=== PATIENT | male | born 1955 | race Caucasian/White ===

== ENCOUNTER → 2024-11-14 | Outpatient (CLI) | payer MEDICARE ==
--- NOTE | 2024-11-14 13:18 | CA ---
Transthoracic Echo Report Name: Go Mccall Age: 69 Gender: M : 1955 Exam Date: 11/14/2024 11:28 Exam Location: [facility] Ht (in): 69 Wt (lb): 195 Ordering Physician: Clement Sherwood MD Attending/Referring Phys: Presley RICHARDSON [employer] Ariadna Gallego RDCS Procedure CPT: Indications: a fib Cardiac Hx: Technical Quality: Good Contrast 1: Total Dose (mL): Contrast 2: Total Dose (mL): MEASUREMENTS (Male / Female) Normal Values 2D ECHO LV Diastolic Diameter PLAX 5.8 cm 4.2 - 5.9 / 3.9 - 5.3 cm LV Systolic Diameter PLAX 4.5 cm IVS Diastolic Thickness 1.2 cm 0.6 - 1.0 / 0.6 - 0.9 cm LVPW Diastolic Thickness 1.3 cm 0.6 - 1.0 / 0.6 - 0.9 cm LV Relative Wall Thickness 0.4 RV Internal Dim ED PLAX 3.6 cm LA Systolic Diameter LX 4.5 cm 3.0 - 4.0 / 2.7 - 3.8 cm LV Diastolic Volume MOD 4C 81.3 cm??? LV Systolic Volume MOD 4C 46.6 cm??? LV Ejection Fraction MOD 4C 42.7 % LV Cardiac Index MOD 4C 1242.0 cm???/min???m??? LV Diastolic Length 4C 8.1 cm LV Systolic Length 4C 6.4 cm LV Diastolic Volume MOD 2C 106.0 cm??? LV Systolic Volume MOD 2C 53.4 cm??? LV Ejection Fraction MOD 2C 49.6 % LV Cardiac Index MOD 2C 1881.9 cm???/min???m??? LV Diastolic Length 2C 8.6 cm LV Systolic Length 2C 7.2 cm LA Volume 100.3 cm??? 18 - 58 / 22 - 52 cm??? LA Volume Index 47.9 cm???/m??? 16 - 28 cm???/m??? M-MODE Aortic Root Diameter MM 3.8 cm AV Cusp Separation MM 2.2 cm DOPPLER AV Peak Velocity 192.2 cm/s AV Peak Gradient 14.8 mmHg AV Mean Velocity 113.0 cm/s AV Mean Gradient 6.1 mmHg AV Velocity Time Integral 35.5 cm AI Peak Velocity 481.9 cm/s AI Peak Gradient 92.9 mmHg AI Pressure Half Time 921.6 ms MV Area PHT 3.4 cm??? MV Deceleration Time 176.3 ms TR Peak Velocity 277.8 cm/s TR Peak Gradient 30.9 mmHg Right Ventricular Systolic Press 35.9 mmHg FINDINGS Left Ventricle Left ventricular ejection fraction is estimated at 40-45 %. Mildly increased septal wall thickness. No obvious regional wall motion abnormalities. Right Ventricle Mild right ventricular dilatation. Mild pulmonary hypertension. Right Atrium Normal right atrial size. No right atrial thrombus or mass seen. Left Atrium Mildly increased left atrial diameter. Severely increased left atrial volume. Mildly increased left atrial area. Mitral Valve Structurally normal mitral valve. Mild mitral regurgitation. Aortic Valve Trileaflet aortic valve. Thickened aortic valve without stenosis. Mild-to- moderate aortic regurgitation. Tricuspid Valve Structurally normal tricuspid valve. Mild tricuspid regurgitation. Pulmonic Valve Structurally normal pulmonic valve. Mild pulmonic regurgitation. Pericardium No pericardial effusion. Aorta Mild aortic dilatation at the level of the sinuses of valsalva 38 mm CONCLUSIONS Mildly impaired LV function with EF between 40 to 45%. LVH noted Aortic sclerosis with mild to moderate aortic regurgitation. Cannot rule out bicuspid aortic valve Mildly dilated aorta at the level of sinus of Valsalva Mild mitral regurgitation Mild pulmonary hypertension Previewed by: Dr. Romeo Watson MD (Electronically Signed) Final Date: 14 November 2024 13:18
== END | disposition home or self-care (01) ==
LOC: RADNMMAIN 10:38
PROVIDERS: ATTEND Family Medicine
DX: I48.91 Unspecified atrial fibrillation (principal); I70.0 Atherosclerosis of aorta; I27.20 Pulmonary hypertension, unspecified; I34.0 Nonrheumatic mitral (valve) insufficiency
CPT/HCPCS: 93306

== ENCOUNTER 2025-03-31 10:49 | Day surgery (SDC) | payer MEDICARE ==
[2025-03-28 09:52] VITALS: BMI 28.8
[~2025-03-31 10:49] MED LIST: LIDOCAINE 1% (10MG/ML) FOR IV START INTRADERMA PRN
[2025-03-31 11:41] VITALS: TEMP 97.7
[2025-03-31] MEDS: LACTATED RINGERS 1,000 ML IV ONE (11:56)
[2025-03-31] MEDS: LACTATED RINGERS 1,000 ML IV SCH (11:56)
[2025-03-31 11:59] LABS: Glucose,Whole Blood 110 mg/dL (70-110)
[2025-03-31] MEDS ORDERED: PROPOFOL 10 MG/ML 20 ML VIAL IV ONE (12:36)
[2025-03-31] MEDS ORDERED: LIDOCAINE 1% INJ 10MG/ML (20 ML MDV) ONE (12:36)
--- NOTE | 2025-03-31 13:08 | P.PCN ---
Date of Procedure: 03/31/25 Preoperative Diagnosis: Positive Cologuard Postoperative Diagnosis: Ascending colon polyp Diverticulosis Procedure(s) Performed: Colonoscopy with hot snare polypectomy Anesthesia: MAC Surgeon: Xavier Venegas Pathology: other (Ascending colon polyp) Condition: stable Disposition: same day Indications for Procedure: 69-year-old male presents today for colonoscopy secondary to positive Cologuard. Risks, benefits and alternatives were provided. All questions answered prior to and in the operating suite. Operative Findings: Ascending colon polyp Diverticulosis Description of Procedure: The patient was brought to the endoscopy suite and placed in left lateral decubitus position and adequate sedation was achieved using conscious sedation. Digital rectal exam was performed and mild internal hemorrhoids were palpated. An endoscope was then placed in the rectum and advanced to the cecum as identified by landmarks including the appendiceal orifice and the ileocecal valve. The prep was good. The colonoscope was then slowly withdrawn, examining for any mucosal abnormalities. The cecum, ascending, transverse, descending and sigmoid colon were visualized adequately. There were no large neoplastic lesions noted throughout the colon. Ascending colon polyp was noted. This was removed with hot snare polypectomy. Hemostasis was maintained. Diverticulosis was noted in the descending and sigmoid colon, moderate amount. Hemostasis was maintained. Retroflexion was performed in the rectum and internal hemorrhoids. Excess air was removed, the colonoscope withdrawn and the procedure terminated. The patient was then transferred to the recovery unit in stable condition. Repeat colonoscopy should be performed in 5 years.
[2025-03-31 13:15] VITALS: BP 125/73; PULSE 67; RESP 14
== END 2025-03-31 13:38 | disposition home or self-care (01) ==
LOC: ORWHC2ENDO 10:49
PROVIDERS: ATTEND Surgery
DX: D12.2 Benign neoplasm of ascending colon (principal); K57.30 Diverticulosis of large intestine without perforation or abscess without bleeding; K64.8 Other hemorrhoids
CPT/HCPCS: 45385; J2003; J2704; 88305